=== PATIENT | female | born 1995 | race Caucasian/White ===

== ENCOUNTER 2017-09-05 13:06 | Emergency (ER) | payer OTHER ==
[~2017-09-05] VITALS: Ht 157.5 cm; Wt 98.2 kg
[2017-09-05 13:38] LABS: HEMATOCRIT 34.7 % (36.0-46.0); HEMOGLOBIN 11.5 G/DL (11.9-15.5); MCH 27.3 PG (29.0-34.0); MCHC 33.1 G/DL (30.0-36.0); MCV 82.4 FL (83-99); PLATELET COUNT 314 K/uL (156-360); RBC DIS.WIDTH-CV 15.5 % (11.8-14.6); RBC DIS.WIDTH-SD 46.9 % (39-53); RED BLOOD COUNT 4.21 M/uL (3.80-5.20); WHITE BLOOD COUNT 29.9 K/uL (4.1-10.2)
[2017-09-05 13:47] LABS: CHLORIDE 96 mEq/L (99-109); POTASSIUM 3.3 mEq/L (3.7-5.4); SODIUM 131 mEq/L (136-147)
[2017-09-05 13:49] LABS: TOTAL PROTEIN 7.9 g/dL (6.4-8.3)
[2017-09-05 13:51] LABS: TOTAL BILIRUBIN 1.2 mg/dL (0.0-1.0)
[2017-09-05 13:53] LABS: CREATININE 0.8 mg/dL (0.6-1.3)
[2017-09-05 13:55] LABS: AST (GOT) 15 IU/L (2-34)
[2017-09-05 14:01] LABS: QUANTITATIVE HCG < 4.0 MIU/ML
[2017-09-05 14:05] LABS: GFR ESTIMATE (CALCULATED) > 59 mL/min/
[2017-09-05 14:11] LABS: GLUCOSE 85 mg/dL (70-99)
[2017-09-05 14:14] LABS: ALKALINE PHOSPHATASE 108 IU/L (3-129)
[2017-09-05 14:15] LABS: UREA NITROGEN (BUN) 7 mg/dL (9-23)
[2017-09-05 14:17] LABS: ALT (GPT) 15 IU/L (3-49)
[2017-09-05 14:33] LABS: APPEARANCE CLOUDY ((CLEAR)); BILIRUBIN NEGATIVE; BLOOD SMALL; COLOR YELLOW ((YELLOW)); GLUCOSE (STRIP) NEGATIVE; KETONES 80; LEUKOCYTES LARGE; NITRITE NEGATIVE; PROTEIN (STRIP) 100; SPECIFIC GRAVITY 1.012 (1.000-1.030); UROBILINOGEN 0.2 MG/DL (0.2-1.0)
[2017-09-05 15:05] LABS: RED BLOOD CELLS RARE /HPF (0-5); WHITE BLOOD CELLS TNTC /HPF (0-5)
[2017-09-05] MEDS ORDERED: LEVAQUIN750 MG PO (15:05)
[2017-09-05 15:06] LABS: BACTERIA 2+ /HPF; EPITHELIAL CELLS 2+ /HPF; MUCUS NONE SEEN /LPF; UCUL ADDED? YES
[2017-09-05 18:03] VITALS: BP 101/42
== END 2017-09-05 18:04 | disposition home or self-care (01) ==
LOC: EME 13:06
DX: N10 Acute pyelonephritis (principal); E86.0 Dehydration; Z86.711 Personal history of pulmonary embolism; Z86.718 Personal history of other venous thrombosis and embolism; Z90.49 Acquired absence of other specified parts of digestive tract; Z87.891 Personal history of nicotine dependence
CPT/HCPCS: 80053; 81003; 83605; 83690; 84702; 85027; 87040; 87077; 87086; 87186; 99281; 99285; J0696; J2270; J7040